=== PATIENT | female | born 1980 | race Two or more races ===

== ENCOUNTER 2020-07-08 14:17 | Emergency (ER) | payer OTHER ==
[~2020-07-08] VITALS: Ht 170.2 cm; Wt 91.6 kg
[2020-07-08] MEDS ORDERED: PEPCID AC20 MG PO (16:41)
[2020-07-08] MEDS ORDERED: KETO10TA2 PO (16:41)
[2020-07-18] MEDS ORDERED: ACETAMINOPHEN650 M2 (02:49)
== END 2020-07-08 17:18 | disposition home or self-care (01) ==
LOC: ER 14:17
DX: R10.84 Generalized abdominal pain (principal); R10.2 Pelvic and perineal pain